=== PATIENT | male | born 2005 | race Caucasian/White ===

== ENCOUNTER 2023-04-12 03:18 | Emergency (ER) | payer SELFPAY ==
[~2023-04-12] VITALS: Ht 165.1 cm; Wt 86.7 kg
[2023-04-12 03:26] VITALS: O2SAT 100
[2023-04-12 04:12] LABS: BASOPHILS % 0.6 % (0.0-2.0); EOSINOPHILS % 0.4 % (0.0-5.0); HEMOGLOBIN. 14.4 g/dL (14.0-18.0); LYMPHOCYTES % 22.7 % (20.0-50.0); MEAN CORPUSCULAR HEMOGLOBIN 30.2 pg (28.0-32.0); MEAN PLATELET VOLUME 8.4 fl (7.4-10.4); MONOCYTES % 9.6 % (2.0-8.0); NEUTROPHILS % 66.7 % (40.0-76.0); PLATELET 273 x1000/uL (130-400); RED BLOOD CELL COUNT 4.77 mill/uL (4.7-6.1)
[2023-04-12 04:24] LABS: CHLORIDE 107 mEq/L (98-107)
[2023-04-12 05:30] VITALS: BP 119/90; PULSE 76; RESP 13; TEMP 98.2
== END 2023-04-12 05:37 | disposition home or self-care (01) ==
LOC: ER 03:18
DX: R07.89 Other chest pain (principal); E11.9 Type 2 diabetes mellitus without complications; I10 Essential (primary) hypertension
CPT/HCPCS: 80048; 85025; 36415; 71045; 93005; 99285; Z7610

== ENCOUNTER 2023-06-28 23:33 | Emergency (ER) | payer SELFPAY ==
[~2023-06-28] VITALS: Ht 165.1 cm; Wt 83.0 kg
[2023-06-28 23:52] VITALS: BP 166/108; RESP 18; TEMP 98.7; O2SAT 98
[2023-06-28 23:55] VITALS: PULSE 104
[2023-06-29] MEDS ORDERED: IBUPROFEN 600MG TABLET PO ONE
== END 2023-06-29 03:12 | disposition left against medical advice (07) ==
LOC: ER 23:33
DX: Z53.21 Procedure and treatment not carried out due to patient leaving prior to being seen by health care provider (principal)
CPT/HCPCS: 73610; 99281